=== PATIENT | female | born 1955 | race Caucasian/White ===

== ENCOUNTER 2019-10-10 21:54 | Emergency (ER) | payer SELFPAY ==
[~2019-10-10] VITALS: Ht 154.9 cm; Wt 79.8 kg
[2019-10-10 22:02] VITALS: Ht 154.9 cm; Wt 79.8 kg
[2019-10-11 01:30] VITALS: BP 131/71
== END 2019-10-11 02:39 | disposition home or self-care (01) ==
LOC: ED 21:54
DX: J44.9 Chronic obstructive pulmonary disease, unspecified (principal); J45.909 Unspecified asthma, uncomplicated; I10 Essential (primary) hypertension; E11.9 Type 2 diabetes mellitus without complications; Z88.0 Allergy status to penicillin
CPT/HCPCS: 82962; J7512; J7613; J7644; Q0092